=== PATIENT | male | born 1990 | race Caucasian/White ===

== ENCOUNTER 2017-06-20 12:53 | Emergency (ER) | payer OTHER ==
[2017-06-20 13:21] VITALS: O2SAT 100
[2017-06-20] MEDS ORDERED: Sodium Chloride 0.9% 1,000 ML IV ONE (15:01)
--- NOTE | 2017-06-20 15:06 | C.PDOC ---
History Of Present Illness Patient is a 26 y/o male who presents complaining of 1 day of right flank pain. 6 months ago reports he had a right kidney stone while traveling in [place]. Today , patient developed the pain as well as multiple episodes of vomiting, and came in for further evaluation. No fever, chills, or diarrhea. PMD: Non-[facility] Provider Time Seen by Provider: 06/20/17 14:52 Chief Complaint (Nursing): Male Genitourinary History Per: Patient History/Exam Limitations: no limitations Onset/Duration Of Symptoms: Hrs Current Symptoms Are (Timing): Still Present Associated Symptoms: Nausea, Vomiting Past Medical History Reviewed: Historical Data, Nursing Documentation, Vital Signs Vital Signs: Last Vital Signs Temp 97.4 F L 06/20/17 13:17 Pulse 55 L 06/20/17 13:17 Resp 20 06/20/17 13:17 BP 147/86 06/20/17 13:17 Pulse Ox 100 06/20/17 16:57 - Medical History PMH: Kidney Stones Surgical History: No Surg Hx Family History: States: No Known Family Hx - Social History Hx Alcohol Use: No Hx Substance Use: No - Immunization History Hx Tetanus Toxoid Vaccination: No Hx Influenza Vaccination: No Hx Pneumococcal Vaccination: No Review Of Systems Except As Marked, All Systems Reviewed And Found Negative. Constitutional: Negative for: Fever, Chills Gastrointestinal: Positive for: Nausea, Vomiting. Negative for: Diarrhea Musculoskeletal: Positive for: Other (right flank pain) Physical Exam - Physical Exam Appears: Non-toxic, No Acute Distress Skin: Normal Color, Warm, Dry Head: Atraumatic, Normacephalic Eye(s): bilateral: Normal Inspection, PERRL, EOMI Oral Mucosa: Moist Neck: Normal, Normal ROM, Supple Chest: Symmetrical Cardiovascular: Rhythm Regular, No Murmur Respiratory: Normal Breath Sounds, No Accessory Muscle Use Gastrointestinal/Abdominal: Soft, No Tenderness, No Distention Back: CVA Tenderness (right), No Vertebral Tenderness Extremity: Bilateral: Atraumatic, Normal Color And Temperature, Normal ROM Neurological/Psych: Oriented x3, Normal Speech ED Course And Treatment - Laboratory Results Result Diagrams: 06/20/17 15:35 06/20/17 15:35 Lab Interpretation: No Acute Changes O2 Sat by Pulse Oximetry: 100 (RA) Pulse Ox Interpretation: Normal - CT Scan/US No standard instances Other Rad Studies (CT/US): Read By Radiologist, Radiology Report Reviewed CT/US Interpretation: FINDINGS: There is limited evaluation of the solid organs without the administration of IV contrast. LOWER THORAX: No visible consolidation, pleural effusion, or pneumothorax. LIVER: 5 mm hepatic hypodensity (image 33) ; statistically likely cyst or hemangioma. GALLBLADDER AND BILE DUCTS: Unremarkable unenhanced appearance. PANCREAS: Unremarkable unenhanced appearance. SPLEEN: Unremarkable unenhanced appearance. ADRENALS: Unremarkable unenhanced appearance. KIDNEYS AND URETERS: Evidence of obstructing distal right ureteral calculus measuring approximately 4 mm (series 3, image 127). Proximal hydroureteronephrosis on the right. Additional nonobstructing right renal calculus measures approximately 2 mm. 2 mm nonobstructing left renal calculus. No hydronephrosis or obstructing calculus identified on the left. BLADDER: Under distended urinary bladder precludes adequate evaluation of the urinary bladder. REPRODUCTIVE: Unremarkable. APPENDIX: The appendix is not clearly identified. No secondary signs of acute appendicitis. BOWEL: The stomach is nondistended. Lack of oral contrast limits evaluation for bowel pathology. The bowel loops appear within normal limits of caliber without evidence of intestinal obstruction. PERITONEUM: No significant free fluid. No definite free air. LYMPH NODES: No bulky lymphadenopathy identified. VASCULATURE: No aortic aneurysm. BONES: No acute osseous abnormality is detected. OTHER FINDINGS: None. IMPRESSION: Evidence of obstructing distal right ureteral calculus measuring approximately 4 mm. Proximal hydroureteronephrosis on the right. Additional nonobstructing right renal calculus measures approximately 2 mm. 2 mm nonobstructing left renal calculus. No hydronephrosis or obstructing calculus identified on the left. Progress Note: Treated with IVF NSS and toradol. On re-evaluation abdomen soft , in no distress Reassessment Condition: Improved Medical Decision Making Medical Decision Making: Time: 15:01 Initial Plan: * CMP * CBC * Urinalysis * IV fluids * Zofran * Toradol * CT Abd/Pelvis * Reevaluation Disposition Counseled Patient/Family Regarding: Studies Performed, Diagnosis, Need For Followup, Rx Given - Disposition Referrals: Joel Ortega MD [Staff Provider] - Disposition: HOME/ ROUTINE Disposition Time: 17:00 Condition: STABLE Additional Instructions: Follow up with PMD and urology for further evaluation Return to ED if any increase symptoms Prescriptions: Cephalexin [cephalexin] 500 mg PO Q6 #28 cap Naproxen [Naprosyn] 1 tab PO BID PRN #25 tab PRN Reason: Pain Tamsulosin HCl [Flomax] 0.4 mg PO DAILY #5 cap.er.24h Instructions: Renal Colic Forms: Copier How To Connect (Greek) Print Language: [place] - POA Present On Arrival: None - Clinical Impression Clinical Impression: Kidney stone on right side - 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 - Scribe Statement The provider has reviewed the documentation as recorded by the Scribe (Radha Lares) All medical record entries made by the Scribe were at my direction and personally dictated by me. I have reviewed the chart and agree that the record accurately reflects my personal performance of the history, physical exam, medical decision making, and the department course for this patient. I have also personally directed, reviewed, and agree with the discharge instructions and disposition.
[2017-06-20] MEDS ORDERED: Sodium Chloride 0.9% 1,000 ML ONE (15:09)
[2017-06-20 15:40] LABS: BASO % 0.2 % (0.0-2.0); HEMOGLOBIN 15.2 g/dL (12.0-18.0); LYMPH # 0.6 K/uL (1.0-4.3); MEAN CELL VOLUME 83.8 fL (80.0-94.0); MEAN CORPUSCULAR HEMOGLOBIN 28.9 pg (27.0-31.0); MEAN CORPUSCULAR HGB CONC 34.4 g/dL (33.0-37.0); MEAN PLATELET VOLUME 7.2 fL (7.2-11.7); MONO # 0.4 K/uL (0.0-0.8); MONO % 3.6 % (0.0-10.0); NEUT # 11.1 K/uL (1.8-7.0); NEUT % 91.2 % (50.0-75.0); PLATELET COUNT 241 K/uL (130-400); RBC 5.28 Mil/uL (4.40-5.90); RED CELL DISTRIBUTION WIDTH 12.6 % (11.5-14.5); WHITE BLOOD COUNT 12.2 K/uL (4.8-10.8)
[2017-06-20 15:54] LABS: ALB/GLOB RATIO 1.1 (1.0-2.1); ALBUMIN 4.3 g/dL (3.5-5.0); ALT/SGPT 64 U/L (21-72); AST/SGOT 39 U/L (17-59); BLOOD UREA NITROGEN 12 mg/dL (9-20); CALCIUM 9.1 mg/dl (8.6-10.4); GFR AFRICAN-AMERICAN > 60; GFR NON-AFRICAN AMERICAN > 60
--- NOTE | 2017-06-20 16:13 | CT ---
PROCEDURE: CT Abdomen and Pelvis without Oral or IV contrast. HISTORY: Pain COMPARISON: None available. TECHNIQUE: Contiguous axial images of the abdomen and pelvis. No oral or IV contrast administered. Coronal and Sagittal reformats generated and reviewed. Radiation dose: Total exam DLP = 313.76 mGy-cm. This CT exam was performed using one or more of the following dose reduction techniques: Automated exposure control, adjustment of the mA and/or kV according to patient size, and/or use of iterative reconstruction technique. FINDINGS: There is limited evaluation of the solid organs without the administration of IV contrast. LOWER THORAX: No visible consolidation, pleural effusion, or pneumothorax. LIVER: 5 mm hepatic hypodensity (image 33) ; statistically likely cyst or hemangioma. GALLBLADDER AND BILE DUCTS: Unremarkable unenhanced appearance. PANCREAS: Unremarkable unenhanced appearance. SPLEEN: Unremarkable unenhanced appearance. ADRENALS: Unremarkable unenhanced appearance. KIDNEYS AND URETERS: Evidence of obstructing distal right ureteral calculus measuring approximately 4 mm (series 3, image 127). Proximal hydroureteronephrosis on the right. Additional nonobstructing right renal calculus measures approximately 2 mm. 2 mm nonobstructing left renal calculus. No hydronephrosis or obstructing calculus identified on the left. BLADDER: Under distended urinary bladder precludes adequate evaluation of the urinary bladder. REPRODUCTIVE: Unremarkable. APPENDIX: The appendix is not clearly identified. No secondary signs of acute appendicitis. BOWEL: The stomach is nondistended. Lack of oral contrast limits evaluation for bowel pathology. The bowel loops appear within normal limits of caliber without evidence of intestinal obstruction. PERITONEUM: No significant free fluid. No definite free air. LYMPH NODES: No bulky lymphadenopathy identified. VASCULATURE: No aortic aneurysm. BONES: No acute osseous abnormality is detected. OTHER FINDINGS: None. IMPRESSION: Evidence of obstructing distal right ureteral calculus measuring approximately 4 mm. Proximal hydroureteronephrosis on the right. Additional nonobstructing right renal calculus measures approximately 2 mm. 2 mm nonobstructing left renal calculus. No hydronephrosis or obstructing calculus identified on the left. Additional findings as above.
[2017-06-20 16:23] LABS: URINE BACTERIA OCC (<OCC); URINE BILIRUBIN NEGATIVE (NEGATIVE); URINE BLOOD 3+ (NEGATIVE); URINE CLARITY Hazy (Clear); URINE COLOR Yellow (YELLOW); URINE GLUCOSE (UA) 1+ mg/dL (Normal); URINE NITRATE NEGATIVE (NEGATIVE); URINE PROTEIN 2+ mg/dL (NEGATIVE); URINE UROBILINOGEN NORMAL mg/dL (0.2-1.0)
[2017-06-20 16:24] LABS: URINE LEUKOCYTE ESTERASE 1+ Leu/uL (Negative)
[2017-06-20 16:35] LABS: BANDS 4 % (0-2); LYMPHOCYTE 5 % (20-40); MONOCYTE 4 % (0-10); NEUTROPHIL 87 % (50-75); PLATELET ESTIMATE NORMAL (NORMAL); TOTAL CELLS COUNTED 100
[2017-06-20 16:36] LABS: MICROCYTOSIS SLIGHT
[2017-06-20 17:30] VITALS: BP 120/76; PULSE 77; RESP 18; TEMP 98.6
== END 2017-06-20 17:30 | disposition home or self-care (01) ==
LOC: EDSEX 12:53 → C.ER 12:53
DX: N13.2 Hydronephrosis with renal and ureteral calculous obstruction (principal); Z87.442 Personal history of urinary calculi
CPT/HCPCS: 74176; 80053; 81001; 85025; 96361; 96374; 96375; 99285; J1885; J2405; J7040